=== PATIENT | male | born 1975 | race Caucasian/White ===

== ENCOUNTER 2016-09-27 22:37 | Emergency (ER) | payer BC ==
[2016-09-27 23:46] VITALS: BP 110/69
[2016-09-27] MEDS ORDERED: Tetan/Diph/Pertus SYR(Tdap)* 0.5 ML SYR(BOOSTRIX) use SYR IM ONE (23:57)
[2016-09-28] MEDS ORDERED: Ibuprofen TAB* 600 MG ONE (00:28)
[2016-09-28] MEDS ORDERED: Ibuprofen TAB* 600 MG PO ONE (00:31)
--- NOTE | 2016-09-28 00:31 | ED ---
Laceration/Wound HPI - HPI Summary HPI Summary: 41M presents with right hand laceration s/p playing soccer. He states he fell on his hand and cut it on a metal piece. He denies any foreign body sensation. He states the area has swollen up but he still has full ROM of his hand. He denies any numbness or tingling. He does not remember when his last tetanus was. He is right handed. - History of Current Complaint Stated Complaint: RIGHT HAND LAC Time Seen by Provider: 09/27/16 23:48 Pain Intensity: 8 - Allergy/Home Medications Allergies/Adverse Reactions: Allergies Allergy/AdvReac Type Severity Reaction Status Date / Time No Known Allergies Allergy Verified 09/27/16 22:45 PMH/Surg Hx/FS Hx/Imm Hx Endocrine/Hematology History: Denies: Hx Anticoagulant Therapy Cardiovascular History: Denies: Hx Hypertension Musculoskeletal History: Denies: Hx Rheumatoid Arthritis, Hx Osteoporosis Infectious Disease History: No Infectious Disease History: Denies: Traveled Outside the [place] in Last 30 Days - Family History Known Family History: Negative: Cardiac Disease - Social History Alcohol Use: None Substance Use Type: Reports: None Smoking Status (MU): Never Smoked Tobacco Review of Systems Negative: Fever Negative: Chest Pain Negative: Shortness Of Breath Positive: Edema - right palm Positive: Other - laceration right palm All Other Systems Reviewed And Are Negative: Yes Physical Exam Triage Information Reviewed: Yes Vital Signs On Initial Exam: Initial Vitals Temp Pulse Resp BP Pulse Ox 98.4 F 87 15 121/83 98 09/27/16 22:40 09/27/16 22:40 09/27/16 22:40 09/27/16 22:40 09/27/16 22:40 Vital Signs Reviewed: Yes Appearance: Positive: Well-Appearing Skin: Positive: Warm, Dry, Other - 2 cm laceration present over ulnar aspect of palm Head/Face: Positive: Normal Head/Face Inspection Eyes: Positive: Normal, Conjunctiva Clear Respiratory/Lung Sounds: Positive: Clear to Auscultation, Breath Sounds Present Cardiovascular: Positive: Normal, RRR Musculoskeletal: Positive: Other - good pulses, capillary refill < 2 secs, sensation grossly intact, no snuff box tenderness, tenderness over 5th and 4th metarasal with mild swelling present there surrounding laceration Procedures - Laceration/Wound Repair 1 Location: Other - right palm Description: Linear Anesthesia: Local, 1.0% Length, Depth and Shape: 2cm Betadine Prep?: Yes Irrigated w/ Saline (ccs): 150 Laceration/Wound Explored: clean Closure: Single Layer Suture Type: Prolene - 4-0 Number of Sutures: 2 Diagnostics - Vital Signs Vital Signs Temp Pulse Resp BP Pulse Ox 09/27/16 23:45 97.7 F 80 15 110/69 98 09/27/16 22:40 98.4 F 87 15 121/83 98 - Laboratory Lab Statement: Any lab studies that have been ordered have been reviewed, and results considered in the medical decision making process. - Radiology hand Xray Interpretation: No Acute Changes Radiology Interpretation Completed By: ED Physician Laceration Repair Course/Dx - Course Course Of Treatment: 41M presents with laceration to right palm s/p falling on some metal. denies any foreign body. has full ROM of hand. xray normal as read by me. cleaned area and placed 2 sutures. gave tetanus. patient understands and agrees with plan - Differential Dx Differental Diagnoses: Abrasion, Avulsion, Fracture, Laceration - Clinical Impression Provider Diagnoses: Laceration of right palm Discharge - Discharge Plan Condition: Good Disposition: HOME Patient Education Materials: Care For Your Stitches (ED) Forms: *Work Release Referrals: Non Staff,Doctor [Primary Care Provider] - Additional Instructions: Keep area in bandage, change dressing once a day for 48 hours Take Tylenol or ibuprofen for pain every 6 hours Return to ED, urgent care, or primary for suture removal in 10-14 days Return to ED if develop signs of infection such as fever, spreading redness, or pus formation Images - Images Hands: 1 - 2 cm laceration
--- NOTE | 2016-09-28 07:32 | RAD ---
INDICATION: Laceration between the right fourth and fifth metacarpal COMPARISON: None. TECHNIQUE: 2 views of the right hand were obtained. FINDINGS: The adequately corticated bones are in normal alignment. No significant focal osseous abnormality or fracture is seen. Joint spaces appear maintained. No radiographically apparent subcutaneous foreign body is identified. IMPRESSION: Normal right hand radiograph. If the patient's symptoms persist, follow-up imaging is recommended.
== END 2016-09-28 00:44 | disposition home or self-care (01) ==
LOC: ED 22:37
DX: S61.411A Laceration without foreign body of right hand, initial encounter (principal); W19.XXXA Unspecified fall, initial encounter; Y93.9 Activity, unspecified; Y92.9 Unspecified place or not applicable
CPT/HCPCS: 12002; 90471; 90715; 99281; A9270-GY